=== PATIENT | male | born 1950 | race Caucasian/White ===

== ENCOUNTER 2021-04-07 05:20 | Day surgery (SDC) | payer MEDICARE, OTHER ==
[2021-03-31 11:50] LABS: BASOPHILS # (AUTO) 0.1 X10'3 (0-0.2); BASOPHILS % (AUTO) 1.2 % (0-1); EOSINOPHILS # (AUTO) 0.6 X10'3 (0-0.9); EOSINOPHILS % (AUTO) 9.4 % (0-6); LYMPHOCYTES # (AUTO) 2.2 X10'3 (1.1-4.8); LYMPHOCYTES % (AUTO) 34.2 % (21-51); MEAN CORPUSCULAR HEMOGLOBIN 32.9 PG (27.0-31.0); MEAN CORPUSCULAR VOLUME 96.9 FL (78-98); MEAN PLATELET VOLUME 8.5 FL (7.4-10.4); MONOCYTES # (AUTO) 0.4 X10'3 (0-0.9); MONOCYTES % (AUTO) 5.9 % (2-12); NEUTROPHILS # (AUTO) 3.1 X10'3 (1.8-7.7); NEUTROPHILS % (AUTO) 49.3 % (42-75); PRE OP HEMATOCRIT 38.5 % (42.0-52.0); PRE OP HEMOGLOBIN 13.1 g/dL (14.0-17.9); PRE OP PLATELET COUNT 247 X10'3 (140-440); RED BLOOD COUNT 3.97 X10'6 (4.70-6.10); RED CELL DISTRIBUTION WIDTH 13.4 % (11.5-14.5)
[2021-03-31 12:13] LABS: ALBUMIN 3.7 G/DL (3.4-5.0); ALBUMIN/GLOBULIN RATIO 1.1 (1.1-1.5); ALKALINE PHOSPHATASE 68 IU/L (46-116); BLOOD UREA NITROGEN 15 MG/DL (7-18); BUN/CREATININE RATIO 16.3 (5.4-32.0); CALCIUM 8.9 MG/DL (8.5-10.1); CHLORIDE 106 MMOL/L (99-107); CREATININE 0.92 MG/DL (0.60-1.10); PRE OP ALT 21 U/L (30-65); PRE OP ANION GAP 6 (8-16); PRE OP AST 19 U/L (10-37); PRE OP BILIRUB, TOTAL 0.3 MG/DL (0.0-1.0); PRE OP GLUCOSE 99 MG/DL (70-104); PRE OP POTASSIUM 4.1 MMOL/L (3.4-5.1); PRE OP SODIUM 141 MMOL/L (135-145); TOTAL PROTEIN 7.2 G/DL (6.4-8.2); eGFR 82 ML/MIN
[2021-04-07] VITALS (8 sets, daily range): BP systolic 134–173; BP diastolic 79–97
[~2021-04-07] VITALS: Ht 175.3 cm; Wt 49.5 kg
[~2021-04-07 05:20] MED LIST: FLUT1BLS11 INH; IBUP-1984 PO; OXYC1TAB17 PO; PANT40TA54 PO; ringers solution, lacted 1,000 ML IV SCH
[2021-04-07] MEDS ORDERED: famotidine 20mg tablet PO ONE (05:30)
[2021-04-07] MEDS ORDERED: cefazolin/dext.iso 2gm/50ml IV ONE (05:30)
[2021-04-07] MEDS ORDERED: vancomycin 1,000mg inj ONE (07:09)
[2021-04-07] MEDS ORDERED: BUPIVAcaine/PF 2.5 mg/ml (0.25%) 30ml vial ONE (07:09)
[2021-04-07] MEDS ORDERED: cloNIDine hcl/PF 100mcg/ml inj ONE ×2 (07:31)
[2021-04-07] MEDS ORDERED: fentaNYL/PF 50MCG/1 ML 2ML syringe ONE (07:33)
[2021-04-07] MEDS ORDERED: midazolam 1 mg/ML 2ml injection ONE (07:34)
[2021-04-07] MEDS ORDERED: morphine 2 MG/ML inj. syringe IV PRN (08:50)
[2021-04-07] MEDS ORDERED: meperidine/PF 25mg/ml syringe IV PRN ×3 (08:50)
[2021-04-07] MEDS ORDERED: proCHLORperazine 10 MG/2 ml inj IV PRN (08:50)
[2021-04-07] MEDS ORDERED: ondansetron/PF 4mg/2ml inj IV PRN (08:50)
[2021-04-07] MEDS ORDERED: morphine 4 MG/ML inj SYRINge IV PRN (08:50)
[2021-04-07] MEDS ORDERED: ringers solution, lacted 1,000 ML IV SCH (08:50)
[2021-04-07] MEDS ORDERED: ROPIVAcaine 0.5% (5mg/ml) 30ml vial ONE (08:55)
[2021-04-07] MEDS ORDERED: propofol inj 20 ML IV ONE (08:55)
[2021-04-07] MEDS ORDERED: ePHEDrine 50MG/ML INJ. ONE (08:56)
--- NOTE | 2021-04-07 09:05 | NUR ---
Received from OR via BED, accompanied by Anesthesiologist and report given by Anesthesiologist. PATIENT WAKING UP, NO S/S OF PAIN, V/S WNL, SCD ON, 20G TO LUE, drsg to RIGHT shoulder-CDI with SLING
[2021-04-07] MEDS ORDERED: HYDROcodone/acetaminophen 10/325mg tab PO PRN (09:15)
--- NOTE | 2021-04-07 09:55 | NUR ---
PATIENT WAKING UP, NO S/S OF PAIN, V/S WNL, SCD ON, 20G TO LUE D/C, drsg to RIGHT shoulder-CDI with SLING. I HAVE REVIEWED D/C INSTRUCTIONS WITH PATIENT AND HE HAS VERBALIZED UNDERSTANDING. PATIENT HAS MET D/C CRITERIA. PATIENT WAS D/C HOME WITH ALL BELONGINGS AND FAMILY GAVE TRANSPORT.
== END 2021-04-07 09:55 | disposition home or self-care (01) ==
LOC: PAS 05:20
PROVIDERS: ATTEND Orthopaedic Surgery
DX: T84.84XA Pain due to internal orthopedic prosthetic devices, implants and grafts, initial encounter (principal); K21.9 Gastro-esophageal reflux disease without esophagitis; J43.9 Emphysema, unspecified; F17.210 Nicotine dependence, cigarettes, uncomplicated; Z98.890 Other specified postprocedural states; Z20.822 Contact with and (suspected) exposure to COVID-19; Z79.899 Other long term (current) drug therapy; Z82.49 Family history of ischemic heart disease and other diseases of the circulatory system; Y83.8 Other surgical procedures as the cause of abnormal reaction of the patient, or of later complication, without mention of misadventure at the time of the procedure; Y92.89 Other specified places as the place of occurrence of the external cause
CPT/HCPCS: 20680; 36415; 73000; 76000; 76942; 80053; 82948; 85025; J0690; J0735; J2250; J2704; J2795; J3010; J3370; J3490; J7030; J7120; U0003; U0005; Z7506; Z7508; Z7512; A4215; A4565; A4618; A7000

== ENCOUNTER 2024-06-27 11:30 | Emergency (ER) | payer MEDICARE, OTHER ==
[~2024-06-27] VITALS: Ht 177.8 cm; Wt 45.5 kg
[~2024-06-27 11:30] MED LIST changes: +CEFD300C3 PO; +DULO60CA65 PO; +ESZO2TAB31 PO; -IBUP-1984 PO; +METR-159 PO; +PRAM0.5T12; +SPIR50TA5 PO; -ringers solution, lacted 1,000 ML IV SCH
[2024-06-27 11:33] VITALS: BP 164/98; PULSE 91; RESP 18; TEMP 97.8; O2SAT 98
== END 2024-06-27 15:07 | disposition left against medical advice (07) ==
LOC: ER 11:30
DX: R51.9 Headache, unspecified (principal); M54.9 Dorsalgia, unspecified; W19.XXXA Unspecified fall, initial encounter; Y93.89 Activity, other specified; Y92.89 Other specified places as the place of occurrence of the external cause; Y99.8 Other external cause status; Z53.21 Procedure and treatment not carried out due to patient leaving prior to being seen by health care provider

== ENCOUNTER 2024-09-02 21:56 | Emergency (ER) | payer MEDICARE, OTHER ==
[~2024-09-02] VITALS: Ht 177.8 cm; Wt 44.0 kg
[2024-09-02 22:02] VITALS: TEMP 98.3
[2024-09-02 22:57] LABS: BASOPHILS # (AUTO) 0.1 X10'3 (0-0.2); BASOPHILS % (AUTO) 0.9 % (0-1); EOSINOPHILS # (AUTO) 0.2 X10'3 (0-0.9); EOSINOPHILS % (AUTO) 2.1 % (0-6); HEMATOCRIT 40.4 % (42.0-52.0); HEMOGLOBIN 13.9 g/dl (14.0-17.9); LYMPHOCYTES # (AUTO) 2.5 X10'3 (1.1-4.8); LYMPHOCYTES % (AUTO) 27.2 % (21-51); MEAN CORPUSCULAR HEMOGLOBIN 31.1 PG (27.0-31.0); MEAN CORPUSCULAR HGB CONC 34.3 g/dL (33.0-36.5); MEAN CORPUSCULAR VOLUME 90.8 FL (78-98); MEAN PLATELET VOLUME 8.5 FL (7.4-10.4); MONOCYTES # (AUTO) 0.5 X10'3 (0-0.9); MONOCYTES % (AUTO) 5.7 % (2-12); NEUTROPHILS # (AUTO) 5.9 X10'3 (1.8-7.7); NEUTROPHILS % (AUTO) 64.1 % (42-75); PLATELET COUNT 280 X10'3 (140-440); RED BLOOD COUNT 4.45 X10'6 (4.70-6.10); RED CELL DISTRIBUTION WIDTH 16.9 % (11.5-14.5); WHITE BLOOD COUNT 9.2 X10'3 (4.5-11.0)
[2024-09-02 23:07] LABS: ALANINE AMINOTRANSFERASE 18 U/L (12-78); ALBUMIN 4.1 G/DL (3.4-5.0); ALKALINE PHOSPHATASE 111 IU/L (46-116); ANION GAP 16 (8-16); ASPARTATE AMINO TRANSFERASE 26 U/L (10-37); BILIRUBIN,TOTAL 0.5 MG/DL (0.1-1.0); BLOOD UREA NITROGEN 21 MG/DL (7-18); BUN/CREATININE RATIO 18.6 (10.0-20.0); CALCIUM 11.5 MG/DL (8.5-10.1); CHLORIDE 101 MMOL/L (99-107); CREATININE 1.13 MG/DL (0.60-1.10); GLUCOSE 95 MG/DL (70-104); LIPASE 21 U/L (16-77); SODIUM 139 MMOL/L (135-145); TOTAL CARBON DIOXIDE 22.3 MMOL/L (24-32); TOTAL PROTEIN 8.1 G/DL (6.4-8.2); eCRCL 37 ML/MIN; eGFR 64 ML/MIN
[2024-09-02 23:08] LABS: POTASSIUM 4.3 MMOL/L (3.5-5.1)
--- NOTE | 2024-09-03 01:04 | Physician Documentation ---
History of Present Illness Chief Complaint: Abdominal Pain w/vomiting Stated Complaint: N/V Time Seen by MD: 01:04 Primary Medical Doctor: Deisy CONTRERAS 73-year-old male presenting for abdominal pain. He reports diarrhea nausea and vomiting as well as abdominal discomfort ongoing over the last 12 hours. Reviewed discharge summary March 2024 sepsis, enteritis Had elevated lactic acid 5.9 had MRCP performed portal vein ultrasound, liver ultrasound CT abdomen and pelvis and hepatitis panel which were all unremarkabl e. Diuretics improve transaminitis negative blood cultures Medication Reconciliation Allergies: Coded Allergies: No Known Allergies (Unverified , 09/02/24) Scheduled Duloxetine HCl (Duloxetine HCl), 1 CAP PO DAILY, (Reported) Fluticasone Propion/Salmeterol (Wixela 500-50 Inhub), 1 PUFF INH BID, (Reported) Pantoprazole Sodium (Pantoprazole Sodium), 1 TAB PO DAILY, (Reported) Scheduled PRN Eszopiclone (Eszopiclone), 1 TAB PO HS PRN for sleep, (Reported) Oxycodone Hcl/Acetaminophen (Oxycodone-Acetaminophen 10-325), 1 TAB PO QID PRN for pain, (Reported) Discontinued Medications Cefdinir (Cefdinir), 1 CAP PO Q12H Discontinued Reason: completed med therapy Metronidazole* (Flagyl*), 500 MG PO Q8H Discontinued Reason: patient no longer taking Pramipexole Di-Hcl (Pramipexole Dihydrochloride), (Reported) Discontinued Reason: patient no longer taking Spironolactone (Spironolactone), 100 MG PO DAILY@0830 Discontinued Reason: patient no longer taking Past Medical History Past Medical History: High Cholesterol, COPD, Gastritis, GERD, Chronic Pain, Osteoarthritis Past Surgical History: orthopedic surgeries Patient History: FH: heart disease FATHER, FH: myocardial infarction FATHER, FH: osteoporosis MOTHER, Alcohol Use: Rarely Drug Use: none Lives with: Alone Lives In: Home Occupation: retired Review of Systems All Other Systems at this time: Reviewed and Negative Gastrointestinal: Reports: abdominal pain, nausea, vomiting, diarrhea Physical Exam Vital Signs: Temperature: 98.3, Source: Temporal, Heart Rate: 85, Respiratory Rate: 16, BP: 113/81, Pulse Oximetry: 94, Weight: 44.050 Oxygen Flow Rate: 0 Physical Exam Well-appearing no distress Abdomen soft mild generalized discomfort no guarding no rebound Neuro awake alert oriented Progress Results/Orders Reviewed/noted all lab results: Yes Results/Orders Orders - SUSHMA POWELL MD Urinalysis, Cult If Indicated (09/02/24 22:09) Completed Orders - SUSHMA POWELL MD Cbc/Diff (09/02/24 22:09) BMP (09/02/24 22:09) Lipase (09/02/24 22:09) CMP (09/02/24 22:09) Vital Signs 09/02/24 22:02 Temp 98.3 Pulse 85 Resp 16 B/P (MAP) 113/81 Pulse Ox 94 O2 Flow Rate 0 Laboratory Tests Test 09/02/24 22:31 White Blood Count 9.2 Red Blood Count 4.45 L Hemoglobin 13.9 L Hematocrit 40.4 L Mean Corpuscular Volume 90.8 Mean Corpuscular Hemoglobin 31.1 H Mean Corpuscular Hemoglobin Concent 34.3 Red Cell Distribution Width 16.9 H Platelet Count 280 Mean Platelet Volume 8.5 Neutrophils (%) (Auto) 64.1 Lymphocytes (%) (Auto) 27.2 Monocytes (%) (Auto) 5.7 Eosinophils (%) (Auto) 2.1 Basophils (%) (Auto) 0.9 Neutrophils # (Auto) 5.9 Lymphocytes # (Auto) 2.5 Monocytes # (Auto) 0.5 Eosinophils # (Auto) 0.2 Basophils # (Auto) 0.1 CBC Comment Sodium Level 139 Potassium Level 4.3 Chloride Level 101 Carbon Dioxide Level 22.3 L Anion Gap 16 Blood Urea Nitrogen 21 H Creatinine 1.13 H Estimated GFR/1.73 m2 64 BUN/Creatinine Ratio 18.6 Glucose Level 95 Calcium Level 11.5 H Total Bilirubin 0.5 Aspartate Amino Transf (AST/SGOT) 26 Alanine Aminotransferase (ALT/SGPT) 18 Alkaline Phosphatase 111 Total Protein 8.1 Albumin 4.1 Globulin 4.0 Albumin/Globulin Ratio 1.0 L Lipase 21 Chemistry Comments EKG/XRAY/CT/US/VASC/MRI CT : Impression CT independently interpreted shows no perforation free air. Enteritis Medical Decision Making Additional info obtained from: old records Additional Comments Appendicitis cholecystitis other causes of abdominal pain Departure Disposition: HOME / SELF CARE / HOMELESS Impression: Primary Impression: Undifferentiated abdominal pain Additional Impressions: Lactic acidosis Enteritis Additional Impression Text Patient presents with nausea vomiting abdominal pain diarrhea. His labs are reassuring CT scan shows no acute findings. Abdominal pain resolved Additional Instructions: Your blood tests and imaging today were all very reassuring. Please follow up with your primary care physician and return if your symptoms worsen Referrals: NO PRIMARY CARE PROVIDER (PCP) Critical Care Note Total Time (mins): 30 Critical Care Note The very real possibility of a deterioration of this patient's condition required the highest level of my preparedness for sudden, emergent intervention. I provided critical care services, which included medication orders, frequent reevaluations of the patient's condition and response to treatment, ordering and reviewing test results, and discussing the case with various consultants. Excludes time spent performing separately billable procedures. The critical care time associated with the care of the patient was 30 minutes in the management of lactic acidosis requiring intervention Signature Scribe Signature: [email or web address] Attestation: SUSHMA Valerio MD September 03, 2024 01:04
[2024-09-03] MEDS ORDERED: iohexol 300mg/ml 100ml inj. ONE (01:18)
[2024-09-03] MEDS: ondansetron/PF 4mg/2ml inj IV ONE (01:43)
[2024-09-03] MEDS: ketorolac trometh 15mg/ml vial 15 MG/ML ML IV ONE ×2 (01:43→05:30)
[2024-09-03] MEDS: morphine 4 MG/ML inj SYRINge IV ONE (01:44)
[2024-09-03 03:32] LABS: BILIRUBIN,URINE NEGATIVE (Neg); CLARITY,URINE CLEAR (Clear); COLOR,URINE YELLOW (Yellow); GLUCOSE, URINE NEGATIVE (Neg); KETONES,URINE 15 mg/dl (Neg); LEUKOCYTE ESTERASE ,URINE NEGATIVE (Neg); OCCULT BLOOD,URINE NEGATIVE (Neg); PROTEIN,URINE NEGATIVE (Neg); UROBILINOGEN,URINE 0.2 E.U/dL (0.2-1.0)
[2024-09-03 03:35] LABS: NITRITES, URINE NEGATIVE (Neg); UA COLLECTION TYPE NON-SPECIFIED
[2024-09-03] MEDS: ringers solution, lacted 1,000 ML IV ONE (04:26)
--- NOTE | 2024-09-03 05:03 | RADIOLOGY REPORT ---
Exam: CT CT ABDOMEN PELVIS W/ IV CONTRAST History: abdominal pain COMPARISON: CT CT ABDOMEN PELVIS on DOS: 04/04/24 Technique: Multidetector spiral CT of the abdomen and pelvis was performed from lung bases to pubic s ymphysis. Intravenous contrast was administered during this examination. Portal venous imaging was o btained. Axial, coronal and sagittal multiplanar reformats were performed by the technologist on a [employer] workstation. Radiation Dose : 1. Abdomen/Pelvis: CTDIvol 3.97 mGy, DLP 182.43 mGy*cm. CONTRAST: Type of contrast: Omnipaque 300 Contrast injected: 100 ml Contrast ingested: None Findings: Lung Bases: Parenchymal architectural distortion consistent with changes related to centrilobular em physema. Otherwise, the lung bases are clear. Normal heart size. No pleural or pericardial effusion. Liver: The liver is normal in size. No focal lesions. Normal hepatic vascular enhancement. Gallbladder and Biliary Tree: Unremarkable Spleen: Unremarkable Pancreas: The pancreas is normal in appearance without focal lesions or abnormal enhancement. Adrenal Glands: Unremarkable Kidneys: No hydronephrosis. Bladder: Unremarkable Bowel: Small hiatal hernia. The stomach is patulous and distended in its morphology. Small bowel and colon are normal in caliber and distribution. The appendix is fluid-filled, without secondary finding s of acute appendicitis. Ascites: Absent Lymphadenopathy: No mesenteric, retroperitoneal or periportal lymphadenopathy. Abdominal Wall and Mesentery: Unremarkable. Vasculature: The visualized abdominal aorta is normal in size and caliber. Atherosclerotic vascular c alcifications. Abdominal and pelvic vessels demonstrate normal enhancement. Pelvic Organs: Unremarkable Musculoskeletal: No aggressive focal bony lesions, acute fractures or dislocation. IMPRESSION: 1. No acute abdominal or pelvic finding. 2. Normal diameter fluid-filled appendix without evidence of secondary findings to support acute appe ndicitis. Radiation optimization: All CT scans at this facility use at least one of these dose optimization brionna hniques: automated exposure control mA and/or kV adjustment per patient size (includes targeted exam s where dose is matched to clinical indication) or iterative reconstruction.
[2024-09-03 05:27] VITALS: BP 135/76; PULSE 66; RESP 18; O2SAT 98
== END 2024-09-03 05:30 | disposition home or self-care (01) ==
LOC: ER 21:57
DX: K52.9 Noninfective gastroenteritis and colitis, unspecified (principal); E87.20 Acidosis, unspecified; J44.9 Chronic obstructive pulmonary disease, unspecified; E78.00 Pure hypercholesterolemia, unspecified; K21.9 Gastro-esophageal reflux disease without esophagitis; M19.90 Unspecified osteoarthritis, unspecified site; Z79.899 Other long term (current) drug therapy; Z60.2 Problems related to living alone; Z98.890 Other specified postprocedural states
CPT/HCPCS: 36415; 74177; 80053; 81003; 83605; 83690; 85025; 96361; 96374; 96375; 99285; J1885; J2270; J2405; J7120; Q9967